=== PATIENT | female | born 1965 | race African-American/Black ===

== ENCOUNTER 2017-06-19 11:22 | Day surgery (SDC) | payer BC ==
[~2017-06-19] VITALS: Ht 162.6 cm; Wt 90.9 kg
--- NOTE | ~2017-06-19 | OP ---
PATIENT NAME: JAMES VÁSQUEZ MEDICAL RECORD: [id number] LOCATION:D.OPS ADMISSION DATE: SURGEON: VANCE TERAN DO DATE OF OPERATION: 06/19/2017 PROCEDURE: Colonoscopy with polypectomy. INDICATIONS: Generalized abdominal pain, chronic constipation, history of colon polyps. SCOPE: Olympus video pediatric colonoscope. MEDICATIONS: Propofol IV per anesthesia. WITHDRAWAL TIME: 13 minutes. ESTIMATED BLOOD LOSS: Minimal. COMPLICATIONS: None. FINDINGS: Informed consent was given. The patient was made comfortable with the above medication. After reaching an adequate level of sedation by slow IV push, the patient was placed on her left side. A digital rectal examination was performed and was normal. The endoscope was then advanced under direct visualization through the rectum to the cecum with visualization of the appendiceal orifice and ileocecal valve. The scope was advanced into the terminal ileum approximately 5 cm. Scope was slowly withdrawn and mucosa was carefully examined. The prep was fair to good. The mucosa was seen well with washing and suctioning what remaining stool there was. There were 5 total polyps visualized on this examination. One was located in the ascending colon, another was located in the transverse colon, and 3 were located in the sigmoid colon. All measured approximately 2-5 mm in size. They were all benign appearing and sessile. All were removed with hot forceps in 1 piece and completely retrieved. Retroflexion was performed in the rectum with small nonbleeding internal hemorrhoids visualized. The scope was withdrawn from the patient. The patient tolerated the procedure well and there were no complications. IMPRESSIONS: 1. Five polyps as described above, all removed with hot forceps and completely removed. 2. Small nonbleeding internal hemorrhoids. PLAN AND RECOMMENDATIONS: 1. Discharge home when recovery parameters are met. 2. Follow up on biopsy specimen results. 3. High fiber diet. 4. Continue current medications. 5. Add Linzess 290 mcg capsules 1 p.o. daily for chronic idiopathic constipation. 6. Follow up in GI clinic as needed. 7. Recall recommendations will be dependent on biopsy results, but I anticipate this being in 5 years at this time. TRANSINT:[id number] Voice Confirmation ID: [id number] DOCUMENT ID: [id number] OPERATIVE REPORT [id number] JAMES VÁSQUEZ VANCE TERAN DO CC: [id number] DICTATION DATE: 06/19/17 1457 CALL OR CONTACT CENTRE TEAM LEADER: 06/19/17 [id number] [facility] 06/19/17 [place] [id number] [place] [id number]
[~2017-06-19 11:22] MED LIST: ESTRACE2 MG PO; HYDROCHLOROTHIA25 MG GT; NORVASC10 MG PO; PRILOSEC20 MG PO; PROVENTIL HFA6.7 GM INH
[2017-06-19 12:26] VITALS: BP 155/77; Ht 162.6 cm; Wt 90.9 kg
[2017-06-19 12:43] LABS: HEMATOCRIT 38.9 % (36.0-48.0); HEMOGLOBIN 13.1 g/dL (12-16); MCH 27.7 pg (26.0-34.0); MCHC 33.7 g/dL (31.0-37.0); MCV 82.2 fL (80.0-100.0); RBC 4.73 10x6/uL (4.00-5.40); RDW 13.6 % (11.5-14.5)
[2017-06-19 12:48] LABS: ANION GAP 11.1 mmol/L (8-16); CALCIUM 8.6 mg/dL (8.5-10.1); CARBON DIOXIDE 29.4 mmol/L (21.0-32.0)
[2017-06-19 12:51] LABS: POTASSIUM - SERUM 2.5 mmol/L (3.5-5.1)
--- NOTE | 2017-06-19 16:15 | NUR ---
1614 DISCHARGE INSTRUCTIONS GIVEN. PRESCRIPTION FOR KCL AND LINZESS GIVEN. NO QUESTIONS OR CONCERNS AT THIS TIME. ESCORTED OUT BY VOLUNTEER.
== END 2017-06-19 16:15 | disposition home or self-care (01) ==
LOC: D.OPS 11:22
PROVIDERS: Anesthesiology
DX: D12.2 Benign neoplasm of ascending colon (principal); D12.3 Benign neoplasm of transverse colon; D12.5 Benign neoplasm of sigmoid colon; K64.8 Other hemorrhoids; I10 Essential (primary) hypertension; K21.9 Gastro-esophageal reflux disease without esophagitis; Z01.812 Encounter for preprocedural laboratory examination

== ENCOUNTER 2018-11-04 09:39 | Emergency (ER) | payer BC ==
[~2018-11-04] VITALS: Ht 162.6 cm; Wt 91.4 kg
[2018-11-04 09:45] VITALS: BP 192/91; Ht 162.6 cm; Wt 91.4 kg
[2018-11-04] MEDS ORDERED: BACLOFEN20 M1 PO (12:39)
[2018-11-04] MEDS ORDERED: VOLTAREN75 MG PO (12:39)
== END 2018-11-04 13:45 | disposition home or self-care (01) ==
LOC: D.ER 09:39
DX: S39.012A Strain of muscle, fascia and tendon of lower back, initial encounter (principal); V43.52XA Car driver injured in collision with other type car in traffic accident, initial encounter; Y93.89 Activity, other specified; Y92.410 Unspecified street and highway as the place of occurrence of the external cause; I10 Essential (primary) hypertension

== ENCOUNTER → 2018-11-05 13:33 | Outpatient (CLI) | payer BC ==
[2018-11-04 09:45] VITALS: BMI 34.5
[~2018-11-05 13:33] MED LIST changes: +BACLOFEN20 M1 PO; +VOLTAREN75 MG PO
== END | disposition home or self-care (01) ==
LOC: D.CT 13:30
DX: R51 Headache (principal)

== ENCOUNTER 2019-04-07 07:51 | Emergency (ER) | payer BC ==
[~2019-04-07] VITALS: Ht 162.6 cm; Wt 90.5 kg
[2019-04-07 07:55] VITALS: Ht 162.6 cm; Wt 90.5 kg
[2019-04-07] MEDS ORDERED: LISINOPRIL20 MG PO (07:59)
[2019-04-07] MEDS ORDERED: PREDNISONE50 MG PO (08:17)
[2019-04-07] MEDS ORDERED: BENADRYL50 MG PO (08:17)
[2019-04-07 11:07] VITALS: BP 145/77
== END 2019-04-07 10:55 | disposition home or self-care (01) ==
LOC: D.ER 07:51
DX: T78.3XXA Angioneurotic edema, initial encounter (principal)